=== PATIENT | male | born 1965 | race African-American/Black ===

== ENCOUNTER 2024-11-26 11:19 | Emergency (ER) | payer SELFPAY | END 2024-11-26 13:25 | disposition home or self-care (01) | LOC: FB.ED 11:19 | DX: S83.92XA Sprain of unspecified site of left knee, initial encounter (principal); S73.102A Unspecified sprain of left hip, initial encounter; S76.012A Strain of muscle, fascia and tendon of left hip, initial encounter; I10 Essential (primary) hypertension; F17.210 Nicotine dependence, cigarettes, uncomplicated; Z79.899 Other long term (current) drug therapy; W22.8XXA Striking against or struck by other objects, initial encounter; Y93.89 Activity, other specified | CPT/HCPCS: 73502-LT; 73562-LT; 99283 ==